=== PATIENT | male | born 1965 | race Caucasian/White ===

== ENCOUNTER → 2016-07-25 | Outpatient (CLI) | payer OTHER ==
--- NOTE | 2016-07-25 11:19 | XR ---
EXAMINATION TYPE: XR chest 2V DATE OF EXAM: 07/25/2016 11:09 AM COMPARISON: None HISTORY: 51-year-old male with persistent cough TECHNIQUE: PA and lateral views FINDINGS: The cardiomediastinal silhouette, aorta, and pulmonary vasculature are within normal limits. Mild dif fuse interstitial prominence. No consolidation or pleural effusion. IMPRESSION: Some changes which could reflect bronchitis or chronic asthma. Given the patient's symptoms, if the p atient is a smoker, consider CT.
== END ==
LOC: RADXRMAIN 10:58
PROVIDERS: ATTEND Family Medicine
DX: R05 Cough (principal)
CPT/HCPCS: 71020

== ENCOUNTER 2017-07-02 08:29 | Day surgery (SDC) | payer OTHER ==
[2017-06-29 14:36] VITALS: BMI 35.9
[~2017-07-02 08:29] MED LIST: LACTATED RINGERS 1,000 ML IV SCH
[2017-07-02 08:48] VITALS: TEMP 98.2
[2017-07-02] MEDS ORDERED: LIDOCAINE 1% 20 ML VIAL (10MG/ML) FOR IV START INTRADERMA ONE (08:49)
[2017-07-02] MEDS ORDERED: LIDOCAINE 1% INJ 10MG/ML (20 ML MDV) ONE (08:54)
[2017-07-02] MEDS ORDERED: PROPOFOL 10 MG/ML 20 ML VIAL IV ONE (08:54)
--- NOTE | 2017-07-02 09:08 | P.GSHP ---
History of Present Illness H&P Date: 07/02/17 Chief Complaint: Colon cancer screening Patient here today for colonoscopy. No prior colonoscopies in the past. No bowel complaints. No family history of colon cancer. Past Medical History Past Medical History: Hypertension, Sleep Apnea/CPAP/BIPAP Additional Past Medical History / Comment(s): FREQUENT URINATION, DENIES PROSTATE ENLARGEMENT History of Any Multi-Drug Resistant Organisms: None Reported Past Surgical History: Cholecystectomy, Orthopedic Surgery, Tonsillectomy Additional Past Surgical History / Comment(s): LEFT KNEE SCOPE Past Anesthesia/Blood Transfusion Reactions: No Reported Reaction Smoking Status: Former smoker - Past Family History Father Family Medical History: Cancer Additional Family Medical History / Comment(s): BLADDER Mother Family Medical History: Cancer Additional Family Medical History / Comment(s): STOMACH Medications and Allergies Home Medications Medication Instructions Recorded Confirmed Type Acetaminophen Tab [Tylenol Tab] 650 mg PO Q6H PRN 06/29/17 07/02/17 History Ascorbic Acid [Vitamin C] 500 mg PO DAILY 06/29/17 07/02/17 History Dayquil 1 tab PO DAILY PRN 06/29/17 07/02/17 History Finasteride [Proscar] 5 mg PO QAM 06/29/17 07/02/17 History Tamsulosin [Flomax] 0.4 mg PO QAM 06/29/17 07/02/17 History amLODIPine [Norvasc] 10 mg PO QAM 06/29/17 07/02/17 History Allergies Allergy/AdvReac Type Severity Reaction Status Date / Time guaifenesin Allergy Itching. Verified 07/02/17 08:46 SWEATING Surgical - Exam Vital Signs Temp Pulse Resp BP Pulse Ox 98.2 F 92 16 137/93 94 L 07/02/17 08:47 07/02/17 08:47 07/02/17 08:47 07/02/17 08:47 07/02/17 08:47 Physical exam: General: Well-developed, well-nourished HEENT: Normocephalic, sclerae nonicteric Abdomen: Nontender, nondistended Extremities: No edema Neuro: Alert and oriented Assessment and Plan (1) Colon cancer screening Narrative/Plan: Will proceed with colonoscopy at this time. Current Visit: Yes Status: Acute Code(s): Z12.11 - ENCOUNTER FOR SCREENING FOR MALIGNANT NEOPLASM OF COLON SNOMED Code(s): 405597863
--- NOTE | 2017-07-02 09:26 | P.PCN ---
Date of Procedure: 07/02/17 Procedure(s) Performed: PREOPERATIVE DIAGNOSIS: Colon cancer screening POSTOPERATIVE DIAGNOSIS: Normal exam PROCEDURE: Colonoscopy ANESTHESIA: MAC SURGEON: Silas Brito M.D. SPECIMENS: None ENDOSCOPIC PROCEDURE: The patient was placed on the endoscopy table in the left decubitus position. The Olympus colonoscope was inserted into the anus and passed under direct visualization to the base of the cecum. The appendiceal orifice was visualized. From that point the scope was slowly withdrawn inspecting all surfaces carefully. There were no neoplastic inflammatory or polypoid lesions throughout the cecum, ascending, transverse, descending, sigmoid and rectum. There was no diverticulosis noted. Digital rectal examination was normal. The patient was taken to the recovery room in stable condition per anesthesia guidelines. RECOMMENDATIONS: Increase fiber. Follow-up colonoscopy 10 years.
[2017-07-02 09:34] VITALS: RESP 18
[2017-07-02 09:46] VITALS: BP 116/73; PULSE 78
== END 2017-07-02 10:12 | disposition home or self-care (01) ==
LOC: ORWHC2ENDO 08:29
PROVIDERS: ATTEND Surgery
DX: Z12.11 Encounter for screening for malignant neoplasm of colon (principal); G47.33 Obstructive sleep apnea (adult) (pediatric); I10 Essential (primary) hypertension; Z87.891 Personal history of nicotine dependence; Z90.49 Acquired absence of other specified parts of digestive tract; Z79.899 Other long term (current) drug therapy; Z88.8 Allergy status to other drugs, medicaments and biological substances; Z99.89 Dependence on other enabling machines and devices
CPT/HCPCS: 45378; J2001; J2704

== ENCOUNTER → 2018-05-12 | Outpatient (CLI) | payer BC ==
[2018-05-13 01:26] LABS: Vitamin D 25 Hydroxy 32.2 ng/mL (30.0-100.0)
== END | disposition home or self-care (01) ==
LOC: LABWHC1 16:21
PROVIDERS: ATTEND Family Medicine
DX: R53.83 Other fatigue (principal)
CPT/HCPCS: 36415; 82306; 82607; 84402; 84403

== ENCOUNTER → 2019-12-18 | Outpatient (CLI) | payer BC ==
--- NOTE | 2019-12-19 07:36 | US ---
EXAMINATION TYPE: US abdomen complete DATE OF EXAM: 12/18/2019 COMPARISON: NONE CLINICAL HISTORY: R10.11 RT UPPER QUADRANT PAIN. Pt states RUQ pain, GB removed EXAM MEASUREMENTS: Liver Length: 17.3 cm CBD: 0.6 cm Spleen: 12.3 cm Right Kidney: 11.0 x 6.4 x 6.1 cm Left Kidney: 10.5 x 5.5 x 4.7 cm Large pt body habitus, difficult exam Pancreas: Obscured by bowel gas, and limited to large pt body habitus Liver: Very difficult to penetrate, heterogeneous Gallbladder: Surgically absent Evidence for sonographic Walker's sign: No CBD: wnl Spleen: wnl Right Kidney: Cyst medial= 1.1 x 0.8 x 1.0 cm Left Kidney: wnl Upper IVC: wnl Abd Aorta: Proximal portion obscured by overlying bowel gas, mid and distal portions appeared wnl The intrahepatic portion of the IVC and proximal abdominal aorta are within normal limits. Common bi le duct is unremarkable. The visualized portions of the pancreas are homogenous. The spleen is unre markable. Kidneys are symmetric and free of hydronephrosis. No solid renal lesions are seen. IMPRESSION: 1. Fatty hepatic infiltration. 2. Simple cyst right kidney.
== END | disposition home or self-care (01) ==
LOC: RADUSWWP 16:14
PROVIDERS: ATTEND Family Medicine
DX: K76.0 Fatty (change of) liver, not elsewhere classified (principal); N28.1 Cyst of kidney, acquired
CPT/HCPCS: 76700

== ENCOUNTER 2021-08-17 23:02 | Emergency (ER) | payer BC ==
[2021-08-17 23:25] VITALS: BP 141/92; PULSE 91; RESP 18; TEMP 98.3
--- NOTE | 2021-08-17 23:34 | ED ---
URI HPI - General Chief Complaint: Upper Respiratory Infection Stated Complaint: Spitting up blood Time Seen by Provider: 08/17/21 23:19 Source: patient, RN notes reviewed, old records reviewed Mode of arrival: ambulatory Limitations: no limitations - History of Present Illness Initial Comments: This is a 56-year-old male. Patient is a smoker for 20 years ago, not currently. Patient did have coronavirus last year. Patient had hemoptysis throughout the day today. Patient is having episodes of coughing with sputum that have a little bit of blood. No gross blood clots. No shortness of breath. No fevers. Patient also wakes up in the morning with significant sinus pain and pressure and drainage. No known sick contacts, no travel history. No current chest pain MD Complaint: cough, rhinorrhea, nasal congestion, sinus pain -: week(s) (3) Severity scale (1-10): 3 Quality: aching Consistency: constant Improves With: nothing Worsens With: nothing Context: new medications Associated Symptoms: epistaxis, other (Hemoptysis) Treatments Prior to Arrival: none - Related Data Home Medications Medication Instructions Recorded Confirmed Acetaminophen Tab [Tylenol Tab] 650 mg PO Q6H PRN 06/29/17 11/11/17 Ascorbic Acid [Vitamin C] 500 mg PO DAILY 06/29/17 11/11/17 Dayquil 1 tab PO DAILY PRN 06/29/17 11/11/17 amLODIPine [Norvasc] 10 mg PO QAM 06/29/17 11/11/17 [id number] 2 tab PO Q4HR PRN 11/11/17 11/11/17 [Excedrin] Fluticasone Nasal [place] [Flonase 1 spray EA NOSTRIL DAILY PRN 11/11/17 11/11/17 Nasal [place]] Previous Rx's Medication Instructions Recorded Ibuprofen [Motrin] 600 mg PO Q8HR PRN #20 tab 11/12/17 Allergies Allergy/AdvReac Type Severity Reaction Status Date / Time guaifenesin Allergy Itching. Verified 08/17/21 23:25 SWEATING Review of Systems ROS Statement: Those systems with pertinent positive or pertinent negative responses have been documented in the HPI. ROS Other: All systems not noted in ROS Statement are negative. Past Medical History Past Medical History: Hypertension, Sleep Apnea/CPAP/BIPAP Additional Past Medical History / Comment(s): FREQUENT URINATION, DENIES PROSTATE ENLARGEMENT History of Any Multi-Drug Resistant Organisms: None Reported Past Surgical History: Cholecystectomy, Orthopedic Surgery, Tonsillectomy Additional Past Surgical History / Comment(s): LEFT KNEE SCOPE Past Anesthesia/Blood Transfusion Reactions: No Reported Reaction Past Psychological History: No Psychological Hx Reported Smoking Status: Never smoker Past Alcohol Use History: None Reported Past Drug Use History: None Reported - Past Family History Father Family Medical History: Cancer Additional Family Medical History / Comment(s): BLADDER Mother Family Medical History: Cancer Additional Family Medical History / Comment(s): STOMACH General Exam General appearance: alert, in no apparent distress Head exam: Present: atraumatic, normocephalic, normal inspection Eye exam: Present: normal appearance, PERRL, EOMI. Absent: scleral icterus, conjunctival injection, periorbital swelling ENT exam: Present: normal exam, mucous membranes moist Neck exam: Present: normal inspection. Absent: tenderness, meningismus, lymphadenopathy Respiratory exam: Present: normal lung sounds bilaterally. Absent: respiratory distress, wheezes, rales, rhonchi, stridor Cardiovascular Exam: Present: regular rate, normal rhythm, normal heart sounds. Absent: systolic murmur, diastolic murmur, rubs, gallop, clicks GI/Abdominal exam: Present: soft, normal bowel sounds. Absent: distended, tenderness, guarding, rebound, rigid Extremities exam: Present: normal inspection, full ROM, normal capillary refill. Absent: tenderness, pedal edema, joint swelling, calf tenderness Back exam: Present: normal inspection Neurological exam: Present: alert, oriented X3, CN II-XII intact Psychiatric exam: Present: normal affect, normal mood Skin exam: Present: warm, dry, intact, normal color. Absent: rash Course Vital Signs 08/17/21 23:21 Temperature 98.3 F Pulse Rate 91 Respiratory 18 Rate Blood Pressure 141/92 O2 Sat by Pulse 98 Oximetry - Reevaluation(s) Reevaluation #1: 08/18/21 00:06 Medical records reviewed Reevaluation #2: 08/18/21 00:06 Patient informed of results at length regarding findings and questions are answered Medical Decision Making - Medical Decision Making 56 male presented today for evaluation of coughing up blood. Patient states he's had a cough for about 3 weeks now runny nose sinus drainage, patient has normal chest x-ray and antibiotics for rhinosinusitis and hemoptysis and can be discharged home - Radiology Data Radiology results: report reviewed (Chest x-rays negative for acute disease), image reviewed Disposition Clinical Impression: Acute upper respiratory infection, Bronchitis, Sinusitis, Hemoptysis Disposition: HOME SELF-CARE Condition: Good Instructions (If sedation given, give patient instructions): Coughing Up Blood (Hemoptysis) (ED), Sinusitis (ED) Is patient prescribed a controlled substance at d/c from ED?: No Referrals: Deandre Lino III, MD [Primary Care Provider] - 1-2 days Time of Disposition: 00:10
--- NOTE | 2021-08-17 23:37 | XR ---
EXAMINATION TYPE: XR chest 2V DATE OF EXAM: 08/17/2021 COMPARISON: 07/25/2016 HISTORY: Coughing up blood TECHNIQUE: 2 views FINDINGS: Heart and mediastinum are normal. Lungs are clear. Diaphragm is normal. Bony thorax is inta ct. IMPRESSION: Normal chest. No change.
[2021-08-18] MEDS ORDERED: AMOXIC-POT CLAV 875-125MG 1 EACH TAB PO STA (00:08)
== END 2021-08-18 00:16 | disposition home or self-care (01) ==
LOC: EC 23:02
DX: J06.9 Acute upper respiratory infection, unspecified (principal); J32.9 Chronic sinusitis, unspecified; J40 Bronchitis, not specified as acute or chronic; R04.2 Hemoptysis; I10 Essential (primary) hypertension; Z88.3 Allergy status to other anti-infective agents; Z79.899 Other long term (current) drug therapy
CPT/HCPCS: 71046; 99283

== ENCOUNTER → 2024-09-29 | Outpatient (CLI) | payer BC | END | disposition home or self-care (01) | LOC: LABWHC1 15:00 | PROVIDERS: ATTEND Family Medicine | DX: R73.01 Impaired fasting glucose (principal) | CPT/HCPCS: 36415; 82947; 83036 ==